=== PATIENT | female | born 1960 | race Native Hawaiian/Other Pacific Islander ===

== ENCOUNTER 2016-09-18 11:15 | Emergency (ER) | payer OTHER ==
[~2016-09-18] VITALS: Ht 157.5 cm; Wt 108.9 kg
[2016-09-18 12:32] LABS: PLATELET COUNT 323 K/uL (152-353)
[2016-09-18 12:39] LABS: POTASSIUM 3.8 mmol/L (3.6-5.2); SODIUM 137 mmol/L (136-145)
[2016-09-18 12:58] LABS: PARTIAL THROMBOPLASTIN TIME 27.2 SECONDS (24.5-33.6)
[2016-09-18 13:45] VITALS: BP 135/83; TEMP 98.1
== END 2016-09-18 13:45 | disposition home or self-care (01) ==
LOC: ED 11:15
DX: L03.116 Cellulitis of left lower limb (principal); I50.9 Heart failure, unspecified
CPT/HCPCS: 36415; 80053; 85027; 85379; 85610; 85730; 96372; 99283; J0696

== ENCOUNTER 2016-09-26 16:22 | Observation (INO) | payer OTHER ==
[~2016-09-26] VITALS: Ht 157.5 cm; Wt 110.7 kg
[2016-09-26 16:48] VITALS: BP 146/68; TEMP 98.2
[2016-09-26 17:08] LABS: PLATELET COUNT 362 K/uL (152-353)
[2016-09-26 19:47] VITALS: BP 116/60; TEMP 97.7; Ht 157.5 cm; Wt 110.7 kg
--- NOTE | 2016-09-26 21:00 | NUR ---
PT STATES SHE IS LEAVING HOSPITAL DUE TO NOT BEING GIVEN ANY PAIN MEDICATION. NURSE EXPLAINED DOCTOR WOULD ONLY ORDER TYLENOL. PT GOT OUT OF BED WITH CELL PHONE IN HAND AND LEFT ROOM. PT REFUSED TO SIGN AMA PAPERS. HEP LOCK DC'D AT NURSING STATION BY FILIPPO HENDRICKS RN CHARGE NURSE.
--- NOTE | 2016-09-26 21:44 | NUR ---
HEP LOCK REMOVED.
== END 2016-09-26 21:40 | disposition left against medical advice (07) ==
LOC: ED 16:22 → MED/SURG 16:55
DX: L03.116 Cellulitis of left lower limb (principal); J44.9 Chronic obstructive pulmonary disease, unspecified; I10 Essential (primary) hypertension
CPT/HCPCS: 36415; 85027; 87040; 99220; G0378; J3490